=== PATIENT | male | born 1995 | race Caucasian/White ===

== ENCOUNTER 2017-07-01 16:36 | Emergency (ER) | payer BC ==
[~2017-07-01] VITALS: Ht 175.3 cm; Wt 79.0 kg
[~2017-07-01 16:36] MED LIST: TAB-TAB PO
[2017-07-01 16:40] VITALS: BP 134/63; PULSE 56; RESP 12; TEMP 98.6; O2SAT 99
--- NOTE | 2017-07-01 16:59 | PD ---
Physical Exam Date Seen by Provider: Jul 01, 2017 Time Seen by Provider: 16:58 Narrative 21 yo male here for left foot pain. Soccer injury. No other medical issues. No surgeries. Pain to the foot. Vitals are stable in triage. Awaiting bed placement. Data Data Last Documented VS Vital Signs Date Time Temp Pulse Resp B/P (MAP) Pulse Ox O2 Delivery O2 Flow Rate FiO2 07/01/17 16:40 98.6 56 12 134/63 (86) 99 MDM Medical Record Reviewed: Yes Supervised Visit with MARTÍN: Brian Israel Jul 01, 2017 16:59
--- NOTE | 2017-07-01 17:45 | RADRPT ---
EXAM DATE/TIME: 07/01/2017 17:29 [facility] COMPARISON: No previous studies available for comparison. INDICATIONS : Left ankle pain after playing soccer. MEDICAL HISTORY : None. SURGICAL HISTORY : None. ENCOUNTER: Initial ACUITY: 2 days PAIN SCORE: 7/10 LOCATION: Left ankle. FINDINGS: Three view exam was performed of the left ankle. The bony structures are in normal alignment. No ev idence of fracture, dislocation, or soft tissue swelling. The ankle mortise is intact. No radiopaqu e foreign bodies are seen. Bony mineralization is normal. CONCLUSION: Negative for fracture or dislocation. Follow up in 7-10 days is suggested if symptoms persist. Dl Cantu MD FACR on July 01, 2017 at 17:43 Board Certified Radiologist. This report was verified electronically.
--- NOTE | 2017-07-01 17:45 | RADRPT ---
EXAM DATE/TIME: 07/01/2017 17:25 [facility] COMPARISON: No previous studies available for comparison. INDICATIONS : Left foot pain after playing soccer. MEDICAL HISTORY : None. SURGICAL HISTORY : None. ENCOUNTER: Initial ACUITY: 2 days PAIN SCORE: 7/10 LOCATION: Left anterior foot. FINDINGS: Three view examination of the left foot demonstrates no soft tissue swelling, dislocation, or fractur e. The tarsal bones appear intact. The interphalangeal and metatarsophalangeal joints are intact. The calcaneus is intact. Bony mineralization is normal. CONCLUSION: Negative for fracture or dislocation. Follow up in 7-10 days is suggested if symptoms persist. Dl Cantu MD FACR on July 01, 2017 at 17:43 Board Certified Radiologist. This report was verified electronically.
--- NOTE | 2017-07-01 20:33 | PD ---
HPI Chief Complaint: Edema Time Seen by Provider: 20:23 Travel History International Travel<30 days: No Contact w/Intl Traveler<30days: No Traveled to known affect area: No History of Present Illness HPI 21-year-old male here for evaluation of left foot pain. The patient reports that he was playing soccer yesterday, denies specific injury. Throughout the day today he has been noticing pain at the base of his left great toe. Pain is moderate, worse with palpation and weightbearing. He took 2 ibuprofen earlier today. PENDING SALE TO [facility] Past Medical History Medical History: Denies Significant Hx Immunizations Current: Yes Past Surgical History Other Surgery: Yes (right tibia no surgery) Social History Alcohol Use: Yes (occ) Tobacco Use: No Substance Use: No Allergies-Medications (Allergen,Severity, Reaction): Coded Allergies: amoxicillin (Unverified Allergy, Intermediate, rash, 06/16/17) clavulanic acid (Unverified Allergy, Intermediate, rash, 06/16/17) Reported Meds & Prescriptions Reported Meds & Active Scripts Active Reported Multivitamin (Multivitamins) 1 Tab Tab 1 Tab PO DAILY Review of Systems Except as stated in HPI: all other systems reviewed are Neg Physical Exam Narrative GENERAL: Well-developed, well-nourished, comfortable, no apparent distress. SKIN: Focused skin assessment warm/dry. CARDIOVASCULAR: Regular rate and rhythm. Bilateral dorsalis pedis pulses are brisk and equal. RESPIRATORY: No accessory muscle use. GASTROINTESTINAL: Abdomen soft, non-tender, nondistended. Hepatic and splenic margins not palpable. MUSCULOSKELETAL: No obvious deformities. No clubbing. No cyanosis. No edema. Bilateral calves are supple, nontender. Base of left great toe with mild edema as well as tenderness. No obvious deformities in the left foot or ankle. Normal capillary refill in left toes and foot. No warmth or erythema. No skin breaks. NEUROLOGICAL: Awake and alert. No obvious cranial nerve deficits. Motor grossly within normal limits. Normal speech. PSYCHIATRIC: Appropriate mood and affect; insight and judgment normal. Data Data Last Documented VS Vital Signs Date Time Temp Pulse Resp B/P (MAP) Pulse Ox O2 Delivery O2 Flow Rate FiO2 07/01/17 16:40 98.6 56 12 134/63 (86) 99 Orders Orders Ankle, Complete ([id number]) (07/01/17 16:59) Foot, Complete ([id number]) (07/01/17 16:59) [facility] Medical Decision Making Medical Screen Exam Complete: Yes Emergency Medical Condition: Yes Differential Diagnosis Stress fracture, fracture, contusion, sprain, turf toe Narrative Course Left foot x-ray: CONCLUSION: Negative for fracture or dislocation. Follow up in 7-10 days is suggested if symptoms persist. Left ankle x-ray: CONCLUSION: Negative for fracture or dislocation. Follow up in 7-10 days is suggested if symptoms persist. Patient made aware of all findings. He is resting comfortably. He states he has crutches at home that he will use to keep weight off of his foot. I encouraged him to take ibuprofen every 6 hours. I'll given the name of the advisory internship with whom to follow-up within a week if his symptoms persist. He was informed on when to return to the emergency department. He verbalizes understanding and agreement with plan. Diagnosis Primary Impression: Left foot pain Referrals: Kevin Michelle DPM 1 week [facility] Additional Instructions: Follow-up with advisory internship Dr. Michelle or a advisory internship of your choice next week. Return to the emergency department for worsening symptoms or any other concerns. Disposition: 01 DISCHARGE HOME Condition: Stable Victor Manuel Farris MD Jul 01, 2017 20:33
== END 2017-07-01 20:56 | disposition home or self-care (01) ==
LOC: NEPD 16:36
DX: M25.572 Pain in left ankle and joints of left foot (principal)
CPT/HCPCS: 73610; 73630; 99283